=== PATIENT | female | born 1980 | race American Indian/Alaskan Native ===

== ENCOUNTER 2017-02-02 18:40 | Emergency (ER) | payer OTHER ==
[2017-02-02 21:14] LABS: Basophils % (Auto) 0.7 % (0.0-1.8); Eosinophils % (Auto) 1.6 % (0.0-4.3); Hematocrit 32.4 % (30.3-42.9); Hemoglobin 10.6 gm/dl (10.1-14.3); Mean Corpuscular HGB Conc 33 % (30-34); Mean Corpuscular Hemoglobin 28 pg (28-32); Mean Corpuscular Volume 87 fl (79-97); Platelet Count 233 K/mm3 (140-440); Red Blood Count 3.74 M/mm3 (3.65-5.03); Red Cell Distribution Width 13.8 % (13.2-15.2); White Blood Count 6.2 K/mm3 (4.5-11.0)
[2017-02-02 21:32] LABS: Alanine Aminotransferase 9 units/L (7-56); Albumin 3.8 g/dL (3.9-5); Albumin/Globulin Ratio 1.6 %; Alkaline Phosphatase 33 units/L (35-129); Anion Gap 15 mmol/L; BUN/Creatinine Ratio 30; Bilirubin,Total < 0.20 mg/dL (0.1-1.2); Blood Urea Nitrogen 12 mg/dL (7-17); Calcium 8.6 mg/dL (8.4-10.2); Carbon Dioxide 25 mmol/L (22-30); Chloride 99.7 mmol/L (98-107); Glucose 94 mg/dL (65-100); Lipase 27 units/L (13-60); Potassium 3.4 mmol/L (3.6-5.0); Sodium 136 mmol/L (137-145); Total Protein 6.2 g/dL (6.3-8.2)
[2017-02-02 21:41] LABS: Bilirubin,Urine NEG (Negative); Blood,Urine NEG (Negative); Ketones,Urine NEG (Negative); Leukocyte Esterase,Urine NEG (Negative); Mucus,Urine FEW /HPF; Nitrite,Urine NEG (Negative); Protein,Urine <15 mg/dL mg/dL (Negative); Urobilinogen,Urine < 2.0 mg/dL (<2.0)
[2017-02-03] MEDS ORDERED: TYLENOL PO ONE (06:11)
[2017-02-03] MEDS ORDERED: NACL 0.9% 1000 ML 1,000 ML IV ONE (06:11)
[2017-02-03] MEDS ORDERED: ZOFRAN IV ONE (06:11)
--- NOTE | 2017-02-03 06:17 | Emergency Department Report ---
ED Female HPI - General Chief complaint: Abdominal Pain Stated complaint: PREG,ABDOMINAL PAIN,SPOTTING Time Seen by Provider: 02/03/17 05:59 Source: patient Mode of arrival: Ambulatory Limitations: No Limitations - History of Present Illness Initial comments: 36-year-old female with no significant past medical history presents to the hospital with LMP 12/05/2016 with a estimated age of 8 weeks and 4 days presents to the hospital complaints of ongoing but worsening cramping abdominal pain. Patient has had generalized cramping abdominal pain times years. Last week they have been more constant. Pain rated 6/10 in intensity and greatest at the left lower and suprapubic area. Worse with palpation. No alleviating factors. Positive nausea. Patient complains of constipation with infrequent stools last BM was yesterday. Denies fever, vomiting, diarrhea, melena, hematochezia, or dysuria. She has not had care. Mild pink spotting with wiping reported without vilma vaginal bleeding. Previous surgical history . Patient plans to initiate care at [facility] in clinic - Related Data Previous Rx's Medication Instructions Recorded Last Taken Type Miconazole Nitrate [Miconazole 7] 100 mg VG QHS #7 supp.vag 02/03/17 Unknown Rx Ondansetron [Zofran Odt] 4 mg PO Q8HR PRN #15 tab.rapdis 02/03/17 Unknown Rx metroNIDAZOLE [Flagyl] 500 mg PO Q12HR #14 tab 02/03/17 Unknown Rx Allergies Allergy/AdvReac Type Severity Reaction Status Date / Time No Known Allergies Allergy Verified 02/02/17 20:37 ED Review of Systems ROS: Stated complaint: PREG,ABDOMINAL PAIN,SPOTTING Other details as noted in HPI Comment: All other systems reviewed and negative Other: Constitutional: No fevers chills Eyes: No eye pain visual changes ENT: No ear pain or throat pain Neck: Denies pain Respiratory: Denies cough wheezing shortness of breath Cardiovascular: Denies chest pain, palpitations, syncope GI: As per HPI with : Denies dysuria Musculoskeletal: Denies back pain, joint swelling Skin: Denies rash, lesions, erythema Neurologic: Denies headache, numbness, weakness Psychiatric: Denies suicidal ideation, hallucinations ED Past Medical Hx - Past Medical History Previous Medical History?: No - Surgical History Past Surgical History?: Yes Additional Surgical History: c section - Social History Smoking Status: Current Every Day Smoker Substance Use Type: None - Medications Home Medications: Home Medications Medication Instructions Recorded Confirmed Last Taken Type Miconazole Nitrate [Miconazole 7] 100 mg VG QHS #7 supp.vag 02/03/17 Unknown Rx Ondansetron [Zofran Odt] 4 mg PO Q8HR PRN #15 tab.rapdis 02/03/17 Unknown Rx metroNIDAZOLE [Flagyl] 500 mg PO Q12HR #14 tab 02/03/17 Unknown Rx ED Physical Exam - General Limitations: No Limitations - Other Other exam information: General: No limitations, patient is alert in no acute distress Head exam: Atraumatic, normocephalic Eyes exam: Normal appearance ENT: Moist mucous membrane, normal oropharynx Neck exam: Normal inspection, full range of motion Respiratory exam: Clear to auscultation bilateral, no wheezes, rales, crackles Cardiovascular: Normal rate and rhythm, normal heart sounds Abdomen: Soft, nondistended, left lower quadrant and suprapubic tenderness, normal bowel sounds, no rebound or guarding : White vaginal discharge, no external vaginal lesions, no CMT or adnexal tenderness, cervical os closed Extremity: Full range of motion normal inspection no deformity Back: Normal Inspection, full range of motion, no tenderness Neurologic: Alert, oriented x3, cranial nerves intact, no motor or sensory deficit Psychiatric: normal affect, normal mood Skin: Warm, dry, intact ED Course Vital Signs 02/02/17 02/03/17 02/03/17 20:37 04:00 05:55 Temperature 98.4 F 98.3 F Pulse Rate 66 62 Respiratory 16 18 20 Rate Blood Pressure 102/53 106/40 Blood Pressure [Left] O2 Sat by Pulse 100 100 Oximetry 02/03/17 02/03/17 06:44 08:42 Temperature 98.6 F Pulse Rate 72 61 Respiratory 20 16 Rate Blood Pressure Blood Pressure 103/59 103/55 [Left] O2 Sat by Pulse 97 100 Oximetry - Reevaluation(s) Reevaluation #1: 02/03/17 06:18 Meds ordered IV normal saline 1 L, Tylenol, IV Zofran 02/03/17 09:12 Patient feels better with ED treatment and prior to discharge - Consultations Consultation #1: 02/03/17 08:59 Ultrasound findings discussed with Dr. Rojo on-call physician for [employer]. Patient may follow up with her [employer] physician as outpatient ED Medical Decision Making - Lab Data Result diagrams: 02/02/17 20:46 02/02/17 20:46 Lab Results 02/02/17 02/02/17 02/02/17 Range/Units 20:46 20:46 20:46 WBC 6.2 (4.5-11.0) K/mm3 RBC 3.74 (3.65-5.03) M/mm3 Hgb 10.6 (10.1-14.3) gm/dl Hct 32.4 (30.3-42.9) % MCV 87 (79-97) fl MCH 28 (28-32) pg MCHC 33 (30-34) % RDW 13.8 (13.2-15.2) % Plt Count 233 (140-440) K/mm3 Lymph % (Auto) 29.7 (13.4-35.0) % Park % (Auto) 10.2 H (0.0-7.3) % Eos % (Auto) 1.6 (0.0-4.3) % Baso % (Auto) 0.7 (0.0-1.8) % Lymph # 1.9 (1.2-5.4) K/mm3 Park # 0.6 (0.0-0.8) K/mm3 Eos # 0.1 (0.0-0.4) K/mm3 Baso # 0.0 (0.0-0.1) K/mm3 Seg Neutrophils % 57.8 (40.0-70.0) % Seg Neutrophils # 3.6 (1.8-7.7) K/mm3 Sodium 136 L (137-145) mmol/L Potassium 3.4 L (3.6-5.0) mmol/L Chloride 99.7 (98-107) mmol/L Carbon Dioxide 25 (22-30) mmol/L Anion Gap 15 mmol/L BUN 12 (7-17) mg/dL Creatinine 0.4 L (0.7-1.2) mg/dL Estimated GFR > 60 ml/min BUN/Creatinine Ratio 30 % Glucose 94 (65-100) mg/dL Calcium 8.6 (8.4-10.2) mg/dL Total Bilirubin < 0.20 (0.1-1.2) mg/dL AST 13 (5-40) units/L ALT 9 (7-56) units/L Alkaline Phosphatase 33 L (35-129) units/L Total Protein 6.2 L (6.3-8.2) g/dL Albumin 3.8 L (3.9-5) g/dL Albumin/Globulin Ratio 1.6 % Lipase 27 (13-60) units/L HCG, Qual Positive (Negative) HCG, Quant (0-4) mIU/mL Urine Color (Yellow) Urine Turbidity (Clear) Urine pH (5.0-7.0) Ur Specific [place] (1.003-1.030) Urine Protein (Negative) mg/dL Urine Glucose (UA) (Negative) mg/dL Urine Ketones (Negative) mg/dL Urine Blood (Negative) Urine Nitrite (Negative) Urine Bilirubin (Negative) Urine Urobilinogen (<2.0) mg/dL Ur Leukocyte Esterase (Negative) Urine WBC (Auto) (0.0-6.0) /HPF Urine RBC (Auto) (0.0-6.0) /HPF U Epithel Cells (Auto) (0-13.0) /HPF Urine Mucus /HPF Blood Type Antibody Screen 02/02/17 02/02/17 02/03/17 Range/Units 20:46 21:22 06:32 WBC (4.5-11.0) K/mm3 RBC (3.65-5.03) M/mm3 Hgb (10.1-14.3) gm/dl Hct (30.3-42.9) % MCV (79-97) fl MCH (28-32) pg MCHC (30-34) % RDW (13.2-15.2) % Plt Count (140-440) K/mm3 Lymph % (Auto) (13.4-35.0) % Park % (Auto) (0.0-7.3) % Eos % (Auto) (0.0-4.3) % Baso % (Auto) (0.0-1.8) % Lymph # (1.2-5.4) K/mm3 [place] # (0.0-0.8) K/mm3 Eos # (0.0-0.4) K/mm3 Baso # (0.0-0.1) K/mm3 Seg Neutrophils % (40.0-70.0) % Seg Neutrophils # (1.8-7.7) K/mm3 Sodium (137-145) mmol/L Potassium (3.6-5.0) mmol/L Chloride (98-107) mmol/L Carbon Dioxide (22-30) mmol/L Anion Gap mmol/L BUN (7-17) mg/dL Creatinine (0.7-1.2) mg/dL Estimated GFR ml/min BUN/Creatinine Ratio % Glucose (65-100) mg/dL Calcium (8.4-10.2) mg/dL Total Bilirubin (0.1-1.2) mg/dL AST (5-40) units/L ALT (7-56) units/L Alkaline Phosphatase (35-129) units/L Total Protein (6.3-8.2) g/dL Albumin (3.9-5) g/dL Albumin/Globulin Ratio % Lipase (13-60) units/L HCG, Qual (Negative) HCG, Quant 21245 H (0-4) mIU/mL Urine Color Yellow (Yellow) Urine Turbidity Clear (Clear) Urine pH 6.0 (5.0-7.0) Ur Specific [place] 1.025 (1.003-1.030) Urine Protein <15 mg/dl (Negative) mg/dL Urine Glucose (UA) Neg (Negative) mg/dL Urine Ketones Neg (Negative) mg/dL Urine Blood Neg (Negative) Urine Nitrite Neg (Negative) Urine Bilirubin Neg (Negative) Urine Urobilinogen < 2.0 (<2.0) mg/dL Ur Leukocyte Esterase Neg (Negative) Urine WBC (Auto) 2.0 (0.0-6.0) /HPF Urine RBC (Auto) 1.0 (0.0-6.0) /HPF U Epithel Cells (Auto) 2.0 (0-13.0) /HPF Urine Mucus Few /HPF Blood Type A POSITIVE Antibody Screen Negative - Radiology Data Radiology results: report reviewed transvaginal/pelvic ultrasound: 8 week 5 day IUP. Small subchorionic hemorrhage. 1.5 cm right ovarian cyst. Questionable left hydrosalpinx. Normal Doppler flow to ovaries - Medical Decision Making No signs of active bleeding. Rh+ and therefore patient does not require RhoGAM. Wet prep positive for clue cells and yeast. Flagyl and miconazole will be prescribed. GC chlamydia pending Patient received by mouth potassium for mild hypokalemia - Differential Diagnosis miscarriage, ectopic, cervicitis, vaginitis, ovarian cyst, UTI Critical Care Time: No Critical care attestation.: If time is entered above; I have spent that time in minutes in the direct care of this critically ill patient, excluding procedure time. ED Disposition Clinical Impression: 8 weeks gestation of , Right ovarian cyst, Hydrosalpinx, Subchorionic hematoma in first trimester, Bacterial vaginosis, Yeast vaginitis Disposition: TO HOME OR SELFCARE Is pt being admited?: No Does the pt Need Aspirin: No Condition: Stable Instructions: Threatened Miscarriage (ED), Hypokalemia (ED), Ovarian Cyst (ED) , Bacterial Vaginosis (ED), Vulvovaginal Candidiasis (ED) Additional Instructions: The ultrasound shows a small collection of blood in your uterus (subchorionic hemorrhage). You may notice intermittent vaginal spotting. Pelvic rest i.e. no sex is recommended until cleared by [employer]. Return to return to the ER if increased bleeding greater than 1 hour or significant pain. Otherwise you can follow up with your [employer] doctor. Ultrasound shows some fluid in the left fallopian tube and a right ovarian cyst. You have been provided a copy of the ultrasound report to take to your [employer] doctor for follow-up. The wet prep is positive for yeast and bacterial vaginosis. Medications have been prescribed. Gonorrhea and chlamydia test pending. Your gonorrhea and chlamydia tests are pending and take approximately 3-4 days result. You may obtain results in medical records with a photo ID. You may also obtain results through the follow -up doctor office via medical record request. Take Tylenol as needed fro pain. You have also been provided an alternative [employer] for follow-up Prescriptions: metroNIDAZOLE [Flagyl] 500 mg PO Q12HR #14 tab Miconazole Nitrate [Miconazole 7] 100 mg VG QHS #7 supp.vag Ondansetron [Zofran Odt] 4 mg PO Q8HR PRN #15 tab.rapdis PRN Reason: Nausea And Vomiting Referrals: YAAKOV ROJO MD [Staff Physician] - 3-5 Days your, blood bank laboratory professional [Other] - 3-5 Days
[2017-02-03] MEDS ORDERED: K-DUR PO ONE (07:46)
--- NOTE | 2017-02-03 08:11 | Ultrasound Report ---
ULTRASOUND PELVIC COMPLETE ULTRASOUND TRANSVAGINAL HISTORY: Pelvic pain. COMPARISON: None. TECHNIQUE: Transabdominal and transvaginal ultrasound with color doppler interrogation. FINDINGS: Uterus: The uterus measures 14 x 7 x 8 cm. No uterine mass appreciated. The cervix is unremarkable. Endometrium: An intrauterine gestational sac containing a pole and yolk sac is identified. Heart rate measures 167 beats per minute. [place]-rump length measures 20.7 mm which correlates with a 8 week, 5 day . Estimated due date is 09/10/17. A small subchorionic hemorrhage is identified. Right ovary: 5.3 x 2.5 x 2.3 cm. A 1.5 cm simple cyst is noted. Left ovary: 3.3 x 2.4 x 1.5 cm. There is a slightly dilated tubular structure in the left adnexa containing debris which is separate from the left ovary. No internal flow is detected on color Doppler. This may represent fluid in the left fallopian tubule. Lymphocele could be considered. No free pelvic fluid or mass is identified. Normal color doppler interrogation. IMPRESSION: Viable, single intrauterine dated at 8 weeks, 5 days. Small subchorionic hemorrhage. 1.5 cm right ovarian cyst. Questionable left hydrosalpinx. Please correlate with the patient's clinical presentation.
[2017-02-03 08:43] VITALS: BP 103/55
== END 2017-02-03 09:25 | disposition home or self-care (01) ==
LOC: ED 18:40
DX: O34.81 Maternal care for other abnormalities of pelvic organs, first trimester (principal); N83.201 Unspecified ovarian cyst, right side; O23.591 Infection of other part of genital tract in pregnancy, first trimester; B96.89 Other specified bacterial agents as the cause of diseases classified elsewhere; O98.811 Other maternal infectious and parasitic diseases complicating pregnancy, first trimester; B37.3 Candidiasis of vulva and vagina; O23.521 Salpingo-oophoritis in pregnancy, first trimester; O99.331 Smoking (tobacco) complicating pregnancy, first trimester; F17.200 Nicotine dependence, unspecified, uncomplicated; Z3A.08 8 weeks gestation of pregnancy
CPT/HCPCS: 36415; 76801; 76817; 80053; 81001; 83690; 84702; 84703; 85025; 86850; 86900; 86901; 87210; 87591; 96361; 96374; 99285; J2405; J7030